=== PATIENT | male | born 1935 | race Caucasian/White ===

== ENCOUNTER 2017-11-26 07:50 | Day surgery (SDC) | payer MEDICARE, OTHER ==
[2017-11-26] VITALS (10 sets, daily range): BP systolic 99–137; BP diastolic 62–81; PULSE 54–66; TEMP 97.6–98.1
[~2017-11-26] VITALS: Ht 182.9 cm; Wt 84.9 kg
[~2017-11-26 07:50] MED LIST: DUO-KAPS1 CAP PO; OMEGA-3 FISH1000 MG PO; VITAMIN C500 MG PO
[2017-11-27 00:04] VITALS: BP 107/59; PULSE 48; TEMP 98.2
[2017-11-27 03:26] VITALS: BP 142/90; PULSE 105; TEMP 98.3
[2017-11-27 07:38] VITALS: BP 116/71; PULSE 60; TEMP 98.2
== END 2017-11-27 11:50 | disposition home or self-care (01) ==
LOC: SDCO 07:50 → SURG 13:46 → SDCO 11-27 11:50
DX: N39.3 Stress incontinence (female) (male) (principal); Z90.79 Acquired absence of other genital organ(s); Z85.46 Personal history of malignant neoplasm of prostate
CPT/HCPCS: OP; A9284; C1815; G0378; J0690; J1580; J1885; J2250; J2405; J2704; J3010; J7120